=== PATIENT | female | born 1955 | race Caucasian/White ===

== ENCOUNTER 2017-02-03 11:39 | Emergency (ER) | payer MEDICAID ==
[~2017-02-03] VITALS: Ht 175.3 cm; Wt 144.4 kg
[~2017-02-03 11:39] MED LIST: ALBU18HF INH; APIX5TAB PO; ASPI-515 PO; BACL-19 PO; FURO20TA3 PO; HYDR-3240 PO; LEVO25TA4 PO; LISI-170 PO; LORA1TAB PO; METO25TA35 PO; METO50TA82 PO; ONDA-39 PO; POTA20TA91 PO
[2017-02-03 11:46] VITALS: BP 155/104
[2017-02-03] MEDS ORDERED: LOSA100T6 PO (12:26)
[2017-02-03 12:44] LABS: HEMOGLOBIN 15.5 g/dL (11.7-16.4)
[2017-02-03 12:56] LABS: BLOOD UREA NITROGEN 15 mg/dL (7-18)
[2017-02-03] MEDS ORDERED: HYDROcodone/APAP 5/325 TABLET ONE (12:58)
[2017-02-03 12:59] LABS: ASPARTATE AMINO TRANSFERASE 22 U/L (15-37)
[2017-02-03] MEDS ORDERED: HYDROcodone/APAP 5/325 TABLET PO ONE (13:00)
== END 2017-02-03 14:53 | disposition home or self-care (01) ==
LOC: ED 12:59
DX: M79.645 Pain in left finger(s) (principal); M79.644 Pain in right finger(s); R20.2 Paresthesia of skin; M79.89 Other specified soft tissue disorders; F41.9 Anxiety disorder, unspecified; E03.9 Hypothyroidism, unspecified; I10 Essential (primary) hypertension; I48.91 Unspecified atrial fibrillation; G89.29 Other chronic pain
CPT/HCPCS: 36415; 80053; 85025; 86038; 86141; 86430; 99284

== ENCOUNTER 2017-08-29 06:09 | Day surgery (SDC) | payer MEDICAID ==
[~2017-08-29] VITALS: Ht 175.3 cm; Wt 144.3 kg
[~2017-08-29 06:09] MED LIST changes: +LOSA100T6 PO; -ONDA-39 PO; +ONDA4TAB12 PO
[2017-08-29] MEDS ORDERED: LACTATED RINGERS 1,000 ML IV SCH (06:50)
[2017-08-29] MEDS ORDERED: LIDOCAINE 1%, 2ML SQ PRN (07:00)
[2017-08-29 07:24] VITALS: BP 150/82
[2017-08-29] MEDS ORDERED: BP MED PO (07:51)
[2017-08-29] MEDS ORDERED: ATOR-2 PO (07:51)
[2017-08-29] MEDS ORDERED: ALBU18HF INH (07:51)
[2017-08-29] MEDS ORDERED: METH2.5T PO (07:51)
[2017-08-29 07:55] LABS: ASPARTATE AMINO TRANSFERASE 24 U/L (15-37); BLOOD UREA NITROGEN 11 mg/dL (7-18)
[2017-08-29] MEDS ORDERED: PROPOFOL 10 MG/ML, 20ML ONE (16:19)
== END 2017-08-29 09:50 ==
LOC: OUT 06:09
PROVIDERS: ATTEND Internal Medicine Gastroenterology
DX: Z12.11 Encounter for screening for malignant neoplasm of colon (principal); D12.5 Benign neoplasm of sigmoid colon; K63.5 Polyp of colon; K57.30 Diverticulosis of large intestine without perforation or abscess without bleeding; F17.200 Nicotine dependence, unspecified, uncomplicated; I10 Essential (primary) hypertension; Z88.6 Allergy status to analgesic agent; J45.909 Unspecified asthma, uncomplicated; Z90.710 Acquired absence of both cervix and uterus; Z98.890 Other specified postprocedural states; Z72.89 Other problems related to lifestyle; E66.01 Morbid (severe) obesity due to excess calories; Z68.42 Body mass index [BMI] 45.0-49.9, adult
CPT/HCPCS: 36415; 45385; 80053; 88305; 93005; J2704

== ENCOUNTER 2018-07-24 11:52 | Emergency (ER) | payer MEDICAID ==
[~2018-07-24] VITALS: Ht 175.3 cm; Wt 150.0 kg
[~2018-07-24 11:52] MED LIST changes: +ATOR-2 PO; +BP MED PO; -LOSA100T6 PO; +LOSA100T7 PO; +METH2.5T PO
[2018-07-24 13:48] LABS: BASOPHILS # (AUTO) 0.06 x10^3/uL (0-0.1); BASOPHILS % (AUTO) 1 % (0-1); EOSINOPHILS # (AUTO) 0.14 x10^3/uL (0-0.4); EOSINOPHILS % (AUTO) 2 % (1-7); LYMPHOCYTES # (AUTO) 1.83 x10^3/uL (1-3.4); LYMPHOCYTES % (AUTO) 31 % (22-44); MD NO; MEAN CORPUSCULAR HEMOGLOBIN 31.6 pg (27.0-34.8); MEAN CORPUSCULAR HGB CONC 33.4 g/dL (32.4-35.8); MEAN CORPUSCULAR VOLUME 94.7 fL (80-100); MEAN PLATELET VOLUME 8.5 fL (7.4-10.4); MONOCYTES # (AUTO) 0.71 x10^3/uL (0.2-0.8); MONOCYTES % (AUTO) 12 % (2-9); NEUTROPHILS # (AUTO) 3.19 x10^3/uL (1.8-6.8); NEUTROPHILS % (AUTO) 54 % (42-75); PLATELET COUNT 236 x10^3/uL (130-400); RED BLOOD COUNT 4.32 x10^6/uL (3.82-5.3); RED CELL DISTRIBUTION WIDTH 13.7 % (9.6-15.2)
[2018-07-24 13:49] LABS: HCT (SEDRATE) 40.9 % (34.6-47.8)
[2018-07-24 14:00] LABS: ALBUMIN 3.4 g/dL (3.4-5.0); CALCIUM 9.4 mg/dL (8.5-10.1); CHLORIDE 107 mmol/L (98-107)
[2018-07-24] MEDS ORDERED: HYDROcodone/APAP 5/325 TABLET PO ONE (14:00)
[2018-07-24 14:02] LABS: ANION GAP 8 mmol/L (5-15)
[2018-07-24 14:06] LABS: ALANINE AMINOTRANSFERASE 38 U/L (12-78); ALKALINE PHOSPHATASE 64 U/L (45-117); BILIRUBIN,TOTAL 0.9 mg/dL (0.2-1.0); CREATININE 0.77 mg/dL (0.55-1.02)
[2018-07-24] MEDS ORDERED: HYDROcodone/APAP 5/325 TABLET ONE ×2 (14:09→14:31)
[2018-07-24 14:14] VITALS: BP 147/81
[2018-07-24 14:14] LABS: HEMOGLOBIN A1C 6.2 % (4.2-6.3)
== END 2018-07-24 15:24 | disposition home or self-care (01) ==
LOC: ED 14:08
DX: L03.115 Cellulitis of right lower limb (principal); E03.9 Hypothyroidism, unspecified; I10 Essential (primary) hypertension; I48.91 Unspecified atrial fibrillation; F17.200 Nicotine dependence, unspecified, uncomplicated
CPT/HCPCS: 36415; 80053; 83036; 85025; 85651; 86140; 87070; 87077; 87186; 87205; 99285

== ENCOUNTER 2019-03-22 13:03 | Emergency (ER) | payer MEDICAID ==
[~2019-03-22] VITALS: Ht 175.3 cm; Wt 163.6 kg
[~2019-03-22 13:03] MED LIST changes: +LOSA100T14 PO; -LOSA100T7 PO
--- NOTE | 2019-03-22 13:47 | NUR ---
DO ROOM 4
--- NOTE | 2019-03-22 13:53 | NUR ---
PT NOW IN ROOM AND OFF TO XR
[2019-03-22] MEDS ORDERED: OXYcodone/APAP 10/325MG TABLET ONE (14:41)
[2019-03-22] MEDS ORDERED: OXYcodone/APAP 10/325MG TABLET PO ONE (15:00)
--- NOTE | 2019-03-22 15:00 | NUR ---
US TO THE BS
[2019-03-22 16:29] VITALS: BP 182/99
== END 2019-03-22 16:31 | disposition home or self-care (01) ==
LOC: ED 15:40
DX: M25.511 Pain in right shoulder (principal); E03.9 Hypothyroidism, unspecified; F41.9 Anxiety disorder, unspecified; I10 Essential (primary) hypertension; I48.91 Unspecified atrial fibrillation; F17.200 Nicotine dependence, unspecified, uncomplicated
CPT/HCPCS: 99284

== ENCOUNTER 2019-12-26 12:35 | Emergency (ER) | payer MEDICARE, MEDICAID ==
[~2019-12-26] VITALS: Ht 175.3 cm; Wt 170.4 kg
[~2019-12-26 12:35] MED LIST changes: +ONDA-89 PO; -ONDA4TAB12 PO
[2019-12-26] MEDS ORDERED: OXYMETAZOLINE NASAL SPRAY 0.05%,30ML ONE ×2 (12:44→13:19)
[2019-12-26] MEDS ORDERED: TRANEXAMIC ACID 100 MG/ML, 10ML TP ONE (13:00)
[2019-12-26] MEDS ORDERED: TRANEXAMIC ACID 100 MG/ML, 10ML ONE (13:19)
[2019-12-26 13:28] LABS: BASOPHILS # (AUTO) 0.03 x10^3/uL (0-0.1); BASOPHILS % (AUTO) 0 % (0-1); EOSINOPHILS # (AUTO) 0.27 x10^3/uL (0-0.4); EOSINOPHILS % (AUTO) 3 % (1-7); LYMPHOCYTES # (AUTO) 2.81 x10^3/uL (1-3.4); LYMPHOCYTES % (AUTO) 33 % (22-44); MD NO; MEAN CORPUSCULAR HEMOGLOBIN 32.2 pg (27.0-34.8); MEAN CORPUSCULAR HGB CONC 33.4 g/dL (32.4-35.8); MEAN CORPUSCULAR VOLUME 96.5 fL (80-100); MONOCYTES # (AUTO) 0.65 x10^3/uL (0.2-0.8); MONOCYTES % (AUTO) 8 % (2-9); NEUTROPHILS # (AUTO) 4.81 x10^3/uL (1.8-6.8); NEUTROPHILS % (AUTO) 56 % (42-75); PLATELET COUNT 292 x10^3/uL (130-400); RED BLOOD COUNT 4.51 x10^6/uL (3.82-5.3); RED CELL DISTRIBUTION WIDTH 14.6 % (9.6-15.2)
--- NOTE | 2019-12-26 13:48 | NUR ---
REPORT FROM TASK RN. PT IN CHAIR, STATES SHE IS LIGHT HEADED, PT IS REFUSING TO LIE BACK OR GET ON A GURNEY DESPITE FEELING THOUGH SHE WILL "PASS OUT". MULTIPLE ATTEMPTS TO REPEAT BP PER MD AND PT WONT STOP FIGITING, NOT ALLOWING MACHINE TO TAKE, PT REFUSING UPPER ARM MEASUREMENT.
[2019-12-26] MEDS ORDERED: OXYMETAZOLINE NASAL SPRAY 0.05%,30ML NAS ONE (14:00)
[2019-12-26] MEDS ORDERED: SODIUM CHLORIDE 0.9% 1,000ML IVBOLUS ONE (14:30)
[2019-12-26] MEDS ORDERED: SODIUM CHLORIDE FLUSH 10ML SYR IVF ONE (14:30)
--- NOTE | 2019-12-26 14:40 | NUR ---
PT CONTINUES TO C/O DIZZINESS, PT BP 80/56, ERMD UPDATED. PT MOVED TO RM 18 CHARGE MADE AWARE. ORDER FOR FLUIDS RECIEVED
[2019-12-26 17:21] VITALS: BP 119/76
--- NOTE | 2019-12-26 17:21 | NUR ---
TASK RN: PT GIVEN DC INSTRUCTIONS, VS UPDATED AND STABLE. IV REMOVED. PT UNDERSTANDS TO RETURN TO GET NASAL PACKING REMOVED.
== END 2019-12-26 17:27 | disposition home or self-care (01) ==
LOC: ED 13:41
DX: R04.0 Epistaxis (principal); I10 Essential (primary) hypertension; E03.9 Hypothyroidism, unspecified; I48.91 Unspecified atrial fibrillation; M06.9 Rheumatoid arthritis, unspecified; F17.200 Nicotine dependence, unspecified, uncomplicated; R42 Dizziness and giddiness
CPT/HCPCS: 30901; 36415; 83880; 85025; 96360; 99284; J7030

== ENCOUNTER 2020-04-22 14:16 | Outpatient (CLI) | payer MEDICARE, MEDICAID ==
[~2020-04-22 14:16] MED LIST changes: +AMLO-150 PO; +AZIT250T89 PO; +ETAN50PE INJ; +METF500T PO; +PRED20TA PO
== END 2020-04-22 23:59 | disposition home or self-care (01) ==
LOC: CFH 14:16
PROVIDERS: ATTEND Internal Medicine
DX: R91.8 Other nonspecific abnormal finding of lung field (principal); J98.4 Other disorders of lung; I51.7 Cardiomegaly; M06.9 Rheumatoid arthritis, unspecified
CPT/HCPCS: 71250

== ENCOUNTER 2020-06-14 14:41 | Emergency (ER) | payer MEDICARE, MEDICAID ==
[~2020-06-14] VITALS: Ht 175.3 cm; Wt 168.7 kg
--- NOTE | 2020-06-14 15:51 | NUR ---
PT CAME IN CO OF PAINFUL URINATION X 1 MONTH. PT STATES THAT UP UNTIL TODAY SHE HAD URINARY FREQUNECY AND SOMETIMES SHE IS UNABLE TO HOLD IT. BUT, THAT TODAY, SHE SEEMED TO "STOP PEEING". PT WAS ABLE TO PROVIDE UA SAMPLE. PT IS RESTING IN [facility]. ON 2 LITERS FOR "LUNG PULOPS". PT IS ACCOMPANIED BY SON. CONNECTED TO MONITORING EQUIPMENT.
[2020-06-14 16:37] LABS: BASOPHILS # (AUTO) 0.02 x10^3/uL (0-0.1); BASOPHILS % (AUTO) 0 % (0-1); EOSINOPHILS # (AUTO) 0.13 x10^3/uL (0-0.4); EOSINOPHILS % (AUTO) 1 % (1-7); LYMPHOCYTES # (AUTO) 1.82 x10^3/uL (1-3.4); LYMPHOCYTES % (AUTO) 20 % (22-44); MD NO; MEAN CORPUSCULAR HGB CONC 33.2 g/dL (32.4-35.8); MEAN PLATELET VOLUME 8.4 fL (7.4-10.4); MONOCYTES # (AUTO) 1.14 x10^3/uL (0.2-0.8); MONOCYTES % (AUTO) 13 % (2-9); NEUTROPHILS # (AUTO) 5.87 x10^3/uL (1.8-6.8); NEUTROPHILS % (AUTO) 65 % (42-75); PLATELET COUNT 246 x10^3/uL (130-400); RED BLOOD COUNT 4.82 x10^6/uL (3.82-5.3); RED CELL DISTRIBUTION WIDTH 16.2 % (9.6-15.2)
[2020-06-14 16:45] LABS: ALANINE AMINOTRANSFERASE 53 U/L (12-78); ALBUMIN 3.5 g/dL (3.4-5.0); ANION GAP 9 mmol/L (5-15); CALCIUM 9.8 mg/dL (8.5-10.1); CHLORIDE 103 mmol/L (98-107); CREATININE 0.78 mg/dL (0.55-1.02)
[2020-06-14 16:46] LABS: MICROSCOPIC INDICATED
[2020-06-14 16:48] LABS: ALKALINE PHOSPHATASE 86 U/L (45-117); BILIRUBIN,TOTAL 2.6 mg/dL (0.2-1.0); TOTAL PROTEIN 7.9 g/dL (6.4-8.2)
--- NOTE | 2020-06-14 17:03 | NUR ---
PT RESTING IN [facility]. VSS. NAD
[2020-06-14] MEDS ORDERED: KETOROLAC 30 MG/1 ML ONE (17:51)
[2020-06-14 17:54] VITALS: BP 157/94
--- NOTE | 2020-06-14 17:55 | NUR ---
PT REQUEST PAIN MED. SEE MAR
[2020-06-14] MEDS ORDERED: KETOROLAC 30 MG/1 ML IM ONE (18:00)
[2020-08-23] MEDS ORDERED: CHOL500045 PO (09:01)
[2020-08-23] MEDS ORDERED: ASCO500T9 PO (09:01)
[2020-08-23] MEDS ORDERED: GLIP5TAB22 PO (09:01)
[2020-08-23] MEDS ORDERED: ZINC220C7 PO (09:01)
[2020-08-23] MEDS ORDERED: AZIT250T89 PO (09:01)
[2020-08-23] MEDS ORDERED: THIA100T67 PO (09:01)
[2020-08-23] MEDS ORDERED: METF500T3 PO (09:01)
== END 2020-06-14 18:28 | disposition home or self-care (01) ==
LOC: ED 18:24
DX: N39.0 Urinary tract infection, site not specified (principal); M54.5 Low back pain; M54.6 Pain in thoracic spine; M54.2 Cervicalgia; G89.29 Other chronic pain; I10 Essential (primary) hypertension; J44.9 Chronic obstructive pulmonary disease, unspecified; I48.91 Unspecified atrial fibrillation; Z87.891 Personal history of nicotine dependence; Z87.442 Personal history of urinary calculi
CPT/HCPCS: 36415; 80053; 81001; 85025; 87077; 87086; 87186; 96372; 99283; J1885

== ENCOUNTER 2020-08-14 16:09 | Emergency (ER) | payer MEDICARE, MEDICAID ==
[~2020-08-14] VITALS: Ht 175.3 cm; Wt 175.0 kg
--- NOTE | 2020-08-14 16:19 | NUR ---
EMILY RN: MEENU MALLORY [phone]
[2020-08-14] MEDS ORDERED: SODIUM CHLORIDE FLUSH 10ML SYR IVF ONE (17:00)
--- NOTE | 2020-08-14 17:07 | NUR ---
PIV PLACED, LABS DRAWN AND COLLECTED BY [employer] PEST MANAGEMENT TECHNICIAN. XRAY COMPLETE. PT CONNECTED TO MONITORING. CALL LIGHT IN REACH.
[2020-08-14 17:11] VITALS: BP 134/78
[2020-08-14 17:30] LABS: ALANINE AMINOTRANSFERASE 98 U/L (12-78); ALBUMIN 3.1 g/dL (3.4-5.0); ANION GAP 6 mmol/L (5-15); CALCIUM 8.7 mg/dL (8.5-10.1); CHLORIDE 107 mmol/L (98-107); CREATININE 0.77 mg/dL (0.55-1.02)
[2020-08-14] MEDS ORDERED: SODIUM CHLORIDE 0.9% 1,000ML IVBOLUS ONE (17:30)
[2020-08-14 17:32] LABS: BASOPHILS # (AUTO) 0.01 x10^3/uL (0-0.1); BASOPHILS % (AUTO) 0 % (0-1); EOSINOPHILS # (AUTO) 0.02 x10^3/uL (0-0.4); EOSINOPHILS % (AUTO) 1 % (1-7); LYMPHOCYTES % (AUTO) 32 % (22-44); MD NO; MEAN CORPUSCULAR HEMOGLOBIN 31.6 pg (27.0-34.8); MEAN CORPUSCULAR HGB CONC 32.7 g/dL (32.4-35.8); MONOCYTES # (AUTO) 0.53 x10^3/uL (0.2-0.8); MONOCYTES % (AUTO) 17 % (2-9); NEUTROPHILS # (AUTO) 1.62 x10^3/uL (1.8-6.8); NEUTROPHILS % (AUTO) 51 % (42-75); PLATELET COUNT 164 x10^3/uL (130-400); RED BLOOD COUNT 4.21 x10^6/uL (3.82-5.3); RED CELL DISTRIBUTION WIDTH 13.9 % (9.6-15.2)
[2020-08-14 17:35] LABS: ALKALINE PHOSPHATASE 70 U/L (45-117); BILIRUBIN,TOTAL 0.8 mg/dL (0.2-1.0); TOTAL PROTEIN 6.7 g/dL (6.4-8.2); TROPONIN I 0.021 ng/mL (0.000-0.045)
[2020-08-23] MEDS ORDERED: AZIT250T89 PO (09:01)
[2020-08-23] MEDS ORDERED: ASCO500T9 PO (09:01)
[2020-08-23] MEDS ORDERED: ZINC220C7 PO (09:01)
[2020-08-23] MEDS ORDERED: THIA100T67 PO (09:01)
[2020-08-23] MEDS ORDERED: METF500T3 PO (09:01)
[2020-08-23] MEDS ORDERED: GLIP5TAB22 PO (09:01)
[2020-08-23] MEDS ORDERED: CHOL500045 PO (09:01)
== END 2020-08-14 18:20 | disposition home or self-care (01) ==
LOC: ED 17:28
DX: U07.1 COVID-19 (principal); B34.9 Viral infection, unspecified; R94.31 Abnormal electrocardiogram [ECG] [EKG]
CPT/HCPCS: 36415; 71045; 80053; 84484; 85025; 87635; 93005; 99285; J7030

== ENCOUNTER → 2020-12-03 | Outpatient (CLI) | payer MEDICARE, MEDICAID ==
[~2020-12-03] MED LIST changes: +ASCO500T9 PO; +CHOL500045 PO; +GLIP5TAB22 PO; +METF500T3 PO; +THIA100T67 PO; +ZINC220C7 PO
== END | disposition home or self-care (01) ==
LOC: CFH 14:45
PROVIDERS: ATTEND Internal Medicine
DX: R91.1 Solitary pulmonary nodule (principal); I70.0 Atherosclerosis of aorta; I25.10 Atherosclerotic heart disease of native coronary artery without angina pectoris; K80.20 Calculus of gallbladder without cholecystitis without obstruction; Q27.8 Other specified congenital malformations of peripheral vascular system
CPT/HCPCS: 71250

== ENCOUNTER 2021-05-12 15:10 | Emergency (ER) | payer MEDICARE, MEDICAID ==
[~2021-05-12] VITALS: Ht 175.3 cm; Wt 162.9 kg
[~2021-05-12 15:10] MED LIST changes: -ASPI-515 PO; +ASPI-963 PO; +BUDE10.2 INH; +EXEN2PEN SQ-INSULIN; +FOLI1TAB32 PO; +HYDR-2214 PO; -HYDR-3240 PO; +INSU100I11 SQ-INSULIN; +KETO15CR17 TP; +LEVO125C4 PO; +MELO15TA24 PO; +METF500T27 PO; +MONT10TA17 PO; +TIOT18CA INH; +VALS320T2 PO; +[UNRECOGNIZED DRUG - REMARK]
--- NOTE | 2021-05-12 15:56 | NUR ---
1st attempt no answer.
[2021-05-12] MEDS ORDERED: DEXAMETHASONE 4 MG TABLET PO ONE (16:00)
--- NOTE | 2021-05-12 17:39 | NUR ---
[facility] RESPIRATORY THERAPIST: PT TO ROOM FROM [facility]
[2021-05-12] MEDS ORDERED: DEXAMETHASONE 4 MG TABLET ONE (17:47)
--- NOTE | 2021-05-12 17:56 | NUR ---
PT REFUSING DECADRON AT THIS TIME. WANTS TO TALK TO ERP BEFORE TAKING MEDS. PT CONNECTED TO MONITORING. CALL LIGHT IN REACH.
--- NOTE | 2021-05-12 19:27 | NUR ---
ERMD AT BEDSIDE FOR ASSESSMENT.
[2021-05-12 19:50] VITALS: BP 115/69
--- NOTE | 2021-05-12 20:13 | NUR ---
PT LEFT PRIOR TO RECEIVED DC PAPERWORK.
== END 2021-05-12 20:15 | disposition home or self-care (01) ==
LOC: ED 15:40
DX: B34.9 Viral infection, unspecified (principal); Z20.822 Contact with and (suspected) exposure to COVID-19; I48.91 Unspecified atrial fibrillation; R94.31 Abnormal electrocardiogram [ECG] [EKG]
CPT/HCPCS: 71045; 87081; 87880; 93005; 99285; U0003; U0005

== ENCOUNTER → 2021-07-08 | Outpatient (CLI) | payer MEDICARE, MEDICAID ==
[~2021-07-08] MED LIST changes: +ADAL40PE SQ; +LEVO137T3 PO; +METF500T17 PO; +TIOT4MIS2 INH; +VALS320T15 PO
[2021-07-08 14:52] LABS: ALBUMIN 3.1 g/dL (3.4-5.0); ANION GAP 9 mmol/L (5-15); CALCIUM 10.3 mg/dL (8.5-10.1); CHLORIDE 100 mmol/L (98-107)
[2021-07-08 14:56] LABS: ALANINE AMINOTRANSFERASE 64 U/L (12-78); ALKALINE PHOSPHATASE 96 U/L (45-117); CREATININE 0.88 mg/dL (0.55-1.02); TOTAL PROTEIN 7.3 g/dL (6.4-8.2)
== END | disposition home or self-care (01) ==
LOC: STAR 13:37
PROVIDERS: ATTEND Student in an Organized Health Care Education/Training Program
DX: Z01.812 Encounter for preprocedural laboratory examination (principal); Z20.822 Contact with and (suspected) exposure to COVID-19; K80.20 Calculus of gallbladder without cholecystitis without obstruction; I48.91 Unspecified atrial fibrillation
CPT/HCPCS: 36415; 80053; 93005; U0003; U0005

== ENCOUNTER 2021-07-12 13:04 | Day surgery (SDC) | payer MEDICARE, MEDICAID ==
[2021-07-08 14:40] VITALS: BP 111/78
[~2021-07-12] VITALS: Ht 175.3 cm; Wt 157.3 kg
[~2021-07-12 13:04] MED LIST changes: +CEFAZOLIN 1,000 MG ONE; +DEXAMETHASONE 4 MG/ML, 1ML ONE; +FENTANYL PF 250 MCG/5ML ONE; +GLYCOPYRROLATE 0.2MG/1ML, 5ML ONE; +MIDAZOLAM 1 MG/ML, 2ML ONE; +NEOSTIGMINE 1 MG/ML, 10ML ONE; +ONDANSETRON 2MG/ML, 2ML ONE; +PROPOFOL 10 MG/ML, 20ML ONE; +ROCURONIUM 10MG/ML,5ML ONE
[2021-07-12 14:33] VITALS: BP 111/78
[2021-07-12] MEDS ORDERED: CHLORHEXIDINE 15 ML UDC ONE (14:45)
[2021-07-12] MEDS ORDERED: CHLORHEXIDINE 15 ML UDC PO ONE (15:00)
[2021-07-12] MEDS ORDERED: LACTATED RINGERS 1,000 ML IV SCH (15:00)
[2021-07-12] MEDS ORDERED: INSULIN SINGLE DOSE, ER ONE ×2 (15:47→15:58)
[2021-07-12] MEDS ORDERED: EPINEPHRINE 1 MG/ML, 1ML ONE (16:00)
[2021-07-12] MEDS ORDERED: BUPIVACAINE/PF 0.5% ONE (16:00)
[2021-07-12] MEDS ORDERED: INSULIN REGULAR 100 UNITS/ML, 3ML VIAL SQ-INSULIN SCH (16:00)
[2021-07-12] MEDS ORDERED: FENTANYL PF 100 MCG/2ML ONE ×2 (16:35→18:26)
[2021-07-12] MEDS ORDERED: MIDAZOLAM 1 MG/ML, 2ML ONE (16:36)
[2021-07-12] MEDS ORDERED: ROCURONIUM 10MG/ML,5ML ONE (17:02)
[2021-07-12] MEDS ORDERED: GLYCOPYRROLATE 0.2MG/1ML, 5ML ONE (17:02)
[2021-07-12] MEDS ORDERED: SUCCINYLCHOLINE 20 MG/ML, 10ML ONE (17:02)
[2021-07-12] MEDS ORDERED: PROPOFOL 10 MG/ML, 20ML ONE (17:02)
[2021-07-12] MEDS ORDERED: CEFAZOLIN 1,000 MG ONE (17:02)
[2021-07-12] MEDS ORDERED: ONDANSETRON 2MG/ML, 2ML ONE (17:02)
[2021-07-12] MEDS ORDERED: NEOSTIGMINE 1 MG/ML, 10ML ONE (17:02)
[2021-07-12] MEDS ORDERED: MEPERIDINE/PF 25MG/0.5ML IVPush PRN (18:00)
[2021-07-12] MEDS ORDERED: OXYcodone 5 MG/5 ML ORAL.SOL UDC PO PRN (18:00)
[2021-07-12] MEDS ORDERED: FENTANYL PF 100 MCG/2ML IV PRN (18:00)
[2021-07-12] MEDS ORDERED: ONDANSETRON 2MG/ML, 2ML IVPush PRN (18:00)
[2021-07-12] MEDS ORDERED: PROMETHAZINE 25 MG/ML, 1ML IVPush PRN (18:00)
[2021-07-12] MEDS ORDERED: HYDROcodone/APAP 7.5-325MG/15ML UDC PO PRN (18:00)
[2021-07-12] MEDS ORDERED: HYDROmorphone 1 MG/ML, 1ML INJ IVPush PRN (18:00)
[2021-07-12] MEDS ORDERED: ACET325T26 PO (18:09)
[2021-07-12] MEDS ORDERED: DOCU100C33 PO (18:09)
[2021-07-12] MEDS ORDERED: OXYC5TAB2 PO (18:09)
[2021-07-12] MEDS ORDERED: LABETALOL 5MG/ML, 20ML ONE (18:25)
[2021-07-12] MEDS ORDERED: hydrALAzine 20 MG/ML, 1ML ONE (18:26)
[2021-07-12] MEDS ORDERED: ACETAMINOPHEN 650 MG/20.3 ML UDC ONE (18:26)
[2021-07-12] MEDS ORDERED: OXYcodone 5 MG/5 ML ORAL.SOL UDC ONE (18:26)
[2021-07-12] MEDS: LABETALOL 5MG/ML, 20ML IV PRN ×3 (18:36→19:05)
[2021-07-12] MEDS ORDERED: MEPERIDINE/PF 25MG/ML,1ML ONE (18:43)
== END 2021-07-12 22:10 | disposition home or self-care (01) ==
LOC: OUT 13:04
PROVIDERS: ATTEND Student in an Organized Health Care Education/Training Program
DX: K80.10 Calculus of gallbladder with chronic cholecystitis without obstruction (principal); I10 Essential (primary) hypertension; E66.01 Morbid (severe) obesity due to excess calories; G47.00 Insomnia, unspecified; I48.91 Unspecified atrial fibrillation; Z91.048 Other nonmedicinal substance allergy status; Z79.01 Long term (current) use of anticoagulants; Z79.899 Other long term (current) drug therapy; Z98.890 Other specified postprocedural states; Z87.891 Personal history of nicotine dependence; Z72.89 Other problems related to lifestyle; Z68.43 Body mass index [BMI] 50.0-59.9, adult
CPT/HCPCS: 47562; 82962; 88304; J0171; J0330; J0690; J1100; J1815; J2175; J2405; J2704; J2710; J3010; J7120; J2250

== ENCOUNTER → 2021-08-12 | Outpatient (CLI) | payer MEDICARE, MEDICAID ==
[~2021-08-12] MED LIST changes: +ACET325T26 PO; -CEFAZOLIN 1,000 MG ONE; -DEXAMETHASONE 4 MG/ML, 1ML ONE; +DOCU100C33 PO; -FENTANYL PF 250 MCG/5ML ONE; -GLYCOPYRROLATE 0.2MG/1ML, 5ML ONE; -MIDAZOLAM 1 MG/ML, 2ML ONE; -NEOSTIGMINE 1 MG/ML, 10ML ONE; -ONDANSETRON 2MG/ML, 2ML ONE; +OXYC5TAB2 PO; -PROPOFOL 10 MG/ML, 20ML ONE; -ROCURONIUM 10MG/ML,5ML ONE
== END | disposition home or self-care (01) ==
LOC: RAD 07:45
PROVIDERS: ATTEND Student in an Organized Health Care Education/Training Program
DX: K21.9 Gastro-esophageal reflux disease without esophagitis (principal)
CPT/HCPCS: 74246